=== PATIENT | female | born 1995 | race Caucasian/White ===

== ENCOUNTER 2017-03-02 20:05 | Emergency (ER) | payer OTHER ==
[~2017-03-02] VITALS: Ht 170.2 cm; Wt 55.8 kg
--- NOTE | ~2017-03-02 | EKG ---
[address] [address] ELECTROCARDIOGRAM REPORT Name: CHRISTIANO COX Room #: DEP [facility]ARejiReji#: [id number] Admission: 03/02/17 Attend Phys: Discharge: 03/02/17 Date of : [birth year] Report #: [id number] THIS REPORT FOR: //name// [facility] ED Test Date: 2017-03-02 Test Time: 20:17:00 Pat Name: CHRISTIANO COX Department: Room: Gender: F [employer]: [place] : 1995 Requested By: Lashawn Moe Order Number: [id number] MD: Andrew Clifton Measurements Intervals [place] Rate: 90 P: 88 VT: 139 QRS: 93 QRSD: 92 T: 38 QT: 360 QTc: 441 Interpretive Statements Sinus rhythm Borderline right axis deviation Compared to ECG 10/27/2015 14:36:48 Supraventricular tachycardia no longer present ST (T wave) deviation no longer present Electronically Signed On 03-03-2017 8:12:51 CDT by Andrew Clifton [email or web address] <ELECTRONICALLY SIGNED> By: Andrew Clifton MD 03/03/17811 16 16 Andrew Clifton MD /ARASH
[~2017-03-02 20:05] MED LIST: MACROBID 100 M100 M1 PO; POTASSIUM20 PO; TRINATE TABLET1 TAB PO
[2017-03-02 20:55] LABS: ABSOLUTE NEUTROPHILS 4.8 thou/uL (1.4-8.2); BASOPHILS 0.5 % (0.0-2.0); EOSINOPHILS 1.9 % (0.0-3.0); HEMATOCRIT 39.3 % (37.0-47.0); HEMOGLOBIN 13.3 gm/dL (12.0-15.0); LYMPHOCYTES 30.3 % (24.0-44.0); MCH 29.8 pg (26.0-34.0); MCHC 33.9 g/dL (28.0-37.0); MCV 88.1 fL (80.0-100.0); MONOCYTES 5.6 % (1.0-8.0); PLATELET COUNT 150 thou/uL (150-400); POLYS 61.7 % (36.0-66.0); RBC 4.47 mil/uL (4.20-5.00); WBC 7.7 thou/uL (4.0-11.0)
[2017-03-02 20:57] LABS: MANUAL DIFF NO
[2017-03-02 20:58] LABS: CALCIUM 8.5 mg/dL (8.5-10.1); CREATININE 0.7 mg/dL (0.6-1.0); POTASSIUM 3.9 mmol/L (3.5-5.1)
[2017-03-02 21:06] LABS: URINE BILIRUBIN NEGATIVE (Negative); URINE BLOOD NEGATIVE (Negative); URINE COLOR YELLOW; URINE GLUCOSE-RANDOM* NEGATIVE (Negative); URINE KETONES TRACE (Negative); URINE LEUKOCYTES-REFLEX NEGATIVE (Negative); URINE PROTEIN (DIPSTICK) TRACE (Negative); URINE SPECIFIC GRAVITY 1.025 (1.003-1.035); URINE UROBILINOGEN 0.2 E.U./dl (0.2-1.0)
[2017-03-02 21:54] VITALS: BP 101/58
== END 2017-03-02 21:59 | disposition home or self-care (01) ==
LOC: ER 20:05
PROVIDERS: Emergency Medicine
DX: R53.83 Other fatigue (principal); R42 Dizziness and giddiness